=== PATIENT | female | born 1995 | race Caucasian/White ===

== ENCOUNTER 2019-10-16 01:39 | Emergency (ER) | payer BC ==
[2019-10-16] MEDS ORDERED: Propofol* 10 MG/ML 20 ML BTL IV PUSH ONE (01:50)
[2019-10-16] MEDS ORDERED: NS 0.9% 1000 ML** 1,000 ML IV ONE (01:50)
--- NOTE | 2019-10-16 02:09 | ED ---
Lower Extremity - HPI Summary HPI Summary: Patient is a 24 y/o F presenting to [facility] with complaints of right ankle pain and deformity after slipping and falling in mud today, 10/16/19, at around 0045. She denies any other injuries. Patient notes that she is on control. On triage, pain is rated 7/10. Movement exacerbates pain. Home medications and allergies are reviewed. - History of Current Complaint Chief Complaint: EDExtremityLower Stated Complaint: FELL PER PT Hx Obtained From: Patient Mechanism Of Injury: Fall From A Standing Position Onset of Pain: Prior to Arrival Onset/Duration: Still Present Severity Currently: Severe Pain Intensity: 7 Pain Scale Used: 0-10 Numeric Timing: Lasting Hours Location: Is Discrete @ - right ankle Associated Signs And Symptoms: Positive: Negative Aggravating Factor(s): Movement - Allergies/Home Medications Allergies/Adverse Reactions: Allergies Allergy/AdvReac Type Severity Reaction Status Date / Time No Known Allergies Allergy Verified 10/16/19 01:42 PMH/Surg Hx/FS Hx/Imm Hx Sensory History: Denies: Hx Legally Blind, Hx Deafness Opthamlomology History: Denies: Hx Legally Blind EENT History: Denies: Hx Deafness Infectious Disease History: No Infectious Disease History: Denies: Traveled Outside the [place] in Last 30 Days - Family History Known Family History: Negative: Blood Disorder - Social History Alcohol Use: Occasionally Substance Use Type: Reports: None Smoking Status (MU): Never Smoked Tobacco Review of Systems Negative: Fever - on vitals, temp is 96.8 F Musculoskeletal: Other - positive - right ankle pain All Other Systems Reviewed And Are Negative: Yes Physical Exam - Summary Physical Exam Summary: Appearance: Well-appearing, Well-nourished, lying in bed comfortable Skin: Warm, dry, no obvious rash Eyes: sclera anicteric, no conjunctival pallor ENT: mucous membranes moist Neck: deferred Respiratory: No signs of respiratory distress Cardiovascular: Appears well perfused, pulses are nml Abdomen: deferred Musculoskeletal: The right ankle is with obvious deformity. There is tenting of the medial side of the ankle. The skin is pale but there is no opening at this area. Neurological: Awake and alert, mentation is normal, speech is fluent and appropriate Psychiatric: affect is normal, does not appear anxious or depressed Triage Information Reviewed: Yes Vital Signs On Initial Exam: Initial Vitals Temp Pulse Resp BP Pulse Ox 96.8 F 88 16 145/86 99 10/16/19 01:40 10/16/19 01:40 10/16/19 01:40 10/16/19 01:40 10/16/19 01:40 Vital Signs Reviewed: Yes Procedures - Sedation Patient Received Moderate/Deep Sedation with Procedure: Yes Are You The Provider Who Administered The Sedation: Yes Name of Provider Whom Sedated Patient: Brandy Padron - with Isaiah Dupont PA-C, assisting - Procedural Sedation/Analgesia Sedation Course: Emergency Airway Equipment Available, Informed Consent Obtained , Time Out Completed, End-tidal Capnography Utilized Adverse Reactions Experienced by Patient: None Mallampati Classification: Class I ASA Classification: Class I: Normal/Healthy Pre-Procedural Heart: S1 and S2 Pre-Procedural Lungs: Clear Auscultation Comment/Plan of Care: stable for sedation Provider Procedure Attestation: With My Signature Below, I Attest to have Personally Reviewed and Agree with the Pre-Sedation History and Pre-Service Assessment Update Cleared for Moderate Sedation: Yes Pre-Procedural Diagnosis: fracture dislocation right ankle Post-Procedural Diagnosis: same Procedure: reduction of fracture dislocation Estimated Blood Loss: None Specimen(s): None Findings: None Implants/Tubes/Drains Placed: None - Splinting Right Lower Extremity Location: right ankle Hand-Made Type: orthoglass Splint: posterior walking Pre-Proc Neuro Vasc Exam: normal Post-Proc Neuro Vasc Exam: normal Splint Applied by Provider: Brandy Padron Diagnostics - Vital Signs Vital Signs Temp Pulse Resp BP Pulse Ox 10/16/19 01:40 96.8 F 88 16 145/86 99 - Laboratory Lab Statement: Any lab studies that have been ordered have been reviewed, and results considered in the medical decision making process. - Radiology RIGHT ANKLE X-RAY Radiology Interpretation Completed By: ED Physician Summary of Radiographic Findings: Right ankle X-ray showed fracture dislocation of the trimalleolar bone with posterior dislocation of the talus relative to the tibia, pending official report. POST REDUCTION RIGHT ANKLE X-RAY Radiology Interpretation Completed By: ED Physician Summary of Radiographic Findings: Post reduction right ankle X-ray showed good anatomic alignment of right ankle, pending official report. Lower Extremity Course/Dx - Course Course Of Treatment: Patient is a 24 y/o F presenting to [facility] with complaints of right ankle pain and deformity after slipping and falling in mud today, 10/16, at around 0045. She denies any other injuries. The right ankle is with obvious deformity. There is tenting of the medial side of the ankle. The skin is pale but there is no opening at this area. Right ankle X-ray showed fracture dislocation of the trimalleolar bone with posterior dislocation of the talus relative to the tibia. Moderate sedation for reduction was done. Propofol was administered by Dr. Padron, SHO Dupont completed reduction of the ankle. Post reduction right ankle X-ray showed good anatomic alignment of right ankle. Posterior walking orthoglass splint was applied by Dr. Padron. Patient was neurovascularly intact pre and post procedure. Patient was given crutches, Percocet prescription, and orthopedics follow up. Patient was discharged to home. - Diagnoses Provider Diagnoses: Trimalleolar fracture of right ankle Discharge ED - Sign-Out/Discharge Documenting (check all that apply): Patient Departure - discharge - Discharge Plan Condition: Improved Disposition: HOME Prescriptions: oxyCODONE/Acetamin 5/325 MG* [Percocet 5/325 TAB*] 1 tab PO Q4H PRN #15 tab MDD 6 PRN Reason: Pain - Moderate Patient Education Materials: Moderate Sedation (ED) Referrals: Cely Ham MD [Medical Doctor] - Additional Instructions: This fracture will require surgery to heal properly. This can be done anytime over the next week. Make sure to keep the ankle elevated as much as possible, and you cannot bear weight on it until cleared by your surgeon. Use crutches to get around for now. I listed Dr. Ham as she is the local orthopedic surgeon [employer], but it would certainly be fine if you preferred to have surgery back home. - Billing Disposition and Condition Condition: IMPROVED Disposition: Home - Attestation Statements Document Initiated by Fatuma: Yes Documenting Scribe: NITISH COOL Provider For Whom Fatuma is Documenting (Include Credential): BRANDY PADRON MD Scribe Attestation: I, NITISH COOL, scribed for BRANYD PADRON MD on 10/16/19 at 0648. Scribe Documentation Reviewed: Yes Provider Attestation: The documentation as recorded by the NITISH sethi accurately reflects the service I personally performed and the decisions made by me, BRANDY PADRON MD Status of Scribe Document: Viewed
[2019-10-16] MEDS ORDERED: Propofol* 500 MG/50 ML BTL ONE (02:12)
[2019-10-16 03:12] VITALS: BP 124/75
== END 2019-10-16 03:11 | disposition home or self-care (01) ==
LOC: ED 01:39
DX: S82.851A Displaced trimalleolar fracture of right lower leg, initial encounter for closed fracture (principal); W01.0XXA Fall on same level from slipping, tripping and stumbling without subsequent striking against object, initial encounter; Y92.9 Unspecified place or not applicable
CPT/HCPCS: 27818; 99283; J2704